=== PATIENT | female | born 1980 | race Caucasian/White ===

== ENCOUNTER → 2025-04-11 | Outpatient (CLI) | payer MEDICAID, SELFPAY ==
--- NOTE | 2025-04-11 14:00 | XR_ITS ---
Examination: Abdomen sonogram, complete Date and time of exam: April 11, 2025 1509 hours INDICATIONS: Breast sonography October 10, 2016 9:00 glandular tissue, patient states left lower abdominal pain beginning 3 months ago. Technique: Multiple real-time grayscale transabdominal sonographic images of the abdomen have been obtained. Findings: Normal gallbladder. Normal common bile duct 0.3 cm Migrated 2.2 cm Aorta not enlarged. Liver 13.8 cm minimal fatty infiltration. Normal hepatopedal portal venous flow. Patent IVC. Right kidney 9.4 cm and a x1.5 cm. Left kidney 11.1 cm and according to 0.5 cm [id number] renal parenchymal scar formation. Spleen 10.7 cm Impression : Normal gallbladder. Liver normal size minimal fatty infiltration [id number] bilateral linear parenchymal scar formation
--- NOTE | 2025-04-11 14:30 | XR_ITS ---
Examination: Breast ultrasound complete, bilateral Date and time of exam: April 11, 2025 1454 hours INDICATIONS: Right breast sonogram January 07, 2017 9:00 glandular tissue, history left breast lump 4 months Technique: Real-time grayscale ultrasonographic imaging bilateral breasts, including all 4 quadrants as well as nipple retroareolar and axillary regions. Findings: Sonographic images right breast Retroareolar 5 x 7 mm is No solid nodules Sonographic images left breast 12:00 cyst 3 x 3 mm No solid nodules IMPRESSION: BI-RADS Category 2: Benign findings If the patient has a current palpable abnormality, recommend diagnostic mammography follow-up
== END | disposition home or self-care (01) ==
DX: R10.9 Unspecified abdominal pain (principal); R92.8 Other abnormal and inconclusive findings on diagnostic imaging of breast
CPT/HCPCS: 76641; 76700